=== PATIENT | male | born 1990 | race Caucasian/White ===

== ENCOUNTER 2017-01-17 02:04 | Emergency (ER) | payer SELFPAY ==
[~2017-01-17] VITALS: Ht 172.7 cm; Wt 77.3 kg
[2017-01-17] MEDS ORDERED: SODIUM CHLORIDE 0.9% 1,000 ML IV ONE (02:31)
[2017-01-17] MEDS ORDERED: BACITRACIN ZINC OINT UDPKT TOP ONE (02:45)
[2017-01-17] MEDS ORDERED: TETANUS, DIPHTHERIA, PERTUSSIS VAC/PF 0.5ML (>7YR OLD) IM ONE (02:45)
[2017-01-17] MEDS ORDERED: LIDOCAINE HCL 1%/EPI 1:200,000 30 ML VIAL MC ONE (02:45)
[2017-01-17 02:51] LABS: BASOPHILS % 0.4 % (0.0-2.0); EOSINOPHILS % 0.2 % (0.0-5.0); HEMOGLOBIN. 15.1 g/dL (14.0-18.0); LYMPHOCYTES % 22.2 % (20.0-50.0); MEAN CORPUSCULAR HEMOGLOBIN 31.5 pg (28.0-32.0); MEAN CORPUSCULAR VOLUME 91.8 fL (80.0-94.0); MEAN PLATELET VOLUME 7.5 fl (7.4-10.4); MONOCYTES % 6.3 % (2.0-8.0); NEUTROPHILS % 70.9 % (40.0-76.0); PLATELET 232 x1000/uL (130-400); RED CELL DISTRIBUTION WIDTH 12.9 % (11.6-14.6)
[2017-01-17 02:56] LABS: CHLORIDE 95 mEq/L (98-107)
[2017-01-17 03:01] LABS: AMMONIA 41 uMol/L (<32)
[2017-01-17 03:03] LABS: PROTHROMBIN TIME 10.6 sec (9.4-11.6)
[2017-01-17 03:06] LABS: CARBON DIOXIDE 21 mEq/L (21-32); CREATINE KINASE 234 IU/L (39-308); ETHANOL BLOOD 283 mg/dL
[2017-01-17] MEDS ORDERED: SODIUM CHLORIDE 0.9% 1,000 ML IV SCH (03:21)
[2017-01-17] MEDS ORDERED: INSULIN REGULAR (HUMULIN R) 300UNITS/3ML IV SCH (03:30)
[2017-01-17] MEDS: LACTULOSE 20G/30ML UDC PO SCH ×2 (03:30→05:24)
[2017-01-17] MEDS ORDERED: CEFTRIAXONE 1 G PREMIX 50 ML IV SCH (03:45)
[2017-01-17] MEDS ORDERED: VANCOMYCIN 1 G PREMIX 200 ML IV SCH (03:45)
[2017-01-17] MEDS: SODIUM CHLORIDE 0.9% 1000ML BAG (SEPSIS BOLUS) IV SCH ×2 (03:45→07:25)
[2017-01-17] MEDS ORDERED: INSULIN REGULAR (HUMULIN R) 300UNITS/3ML IV NR (07:15)
[2017-01-17 10:50] VITALS: BP 128/74
== END 2017-01-17 11:10 | disposition home or self-care (01) ==
LOC: ER 02:16
DX: S01.01XA Laceration without foreign body of scalp, initial encounter (principal); E11.65 Type 2 diabetes mellitus with hyperglycemia; H57.12 Ocular pain, left eye; E87.2 Acidosis; I10 Essential (primary) hypertension; K76.0 Fatty (change of) liver, not elsewhere classified; R74.0 Nonspecific elevation of levels of transaminase and lactic acid dehydrogenase [LDH]; F17.200 Nicotine dependence, unspecified, uncomplicated; F15.10 Other stimulant abuse, uncomplicated; M79.601 Pain in right arm; E72.20 Disorder of urea cycle metabolism, unspecified; Y08.89XA Assault by other specified means, initial encounter; Y93.89 Activity, other specified; Y92.524 Gas station as the place of occurrence of the external cause; Y99.8 Other external cause status
CPT/HCPCS: 36415; 70450; 70486; 71010; 72125; 74176; 80053; 80307; 80329; 82140; 82550; 82962; 83605; 85025; 85610; 87040; 90471; 90715; 96361; 96365; 96366; 96368; 96375; 96376; 99291; G0482; J0696; J1815; J3370; J7030; X7700; Z7610